=== PATIENT | male | born 1990 | race Caucasian/White ===

== ENCOUNTER 2021-03-10 14:50 | Emergency (ER) | payer OTHER ==
[~2021-03-10] VITALS: Ht 177.8 cm; Wt 104.4 kg
[2021-03-10 15:35] LABS: BASO # 0.01 (0.02-0.10); EOS # 0.01 (0.04-0.40); EOS % 0.1 % (0.0-4.0); HEMATOCRIT 51.9 % (42.0-52.0); HEMOGLOBIN 18.3 g/dL (13.5-18.0); LYMPH# 1.77 (1.50-4.00); MEAN CELL VOLUME 86 fl (78-100); MEAN CORPUSCULAR HEMOGLOBIN 30 pg (27-31); MEAN CORPUSCULAR HGB CONC 35 g/dL (33-37); MEAN PLATELET VOLUME 9.5 fl (7.4-10.4); MONO # 0.73 (0.20-0.80); NEU # 5.71 (1.40-6.50); PLATELET COUNT 210 K/mm3 (130-400); RED BLOOD COUNT 6.07 M/mm3 (4.20-5.60); RED CELL DISTRIBUTION WIDTH 12.4 % (11.5-14.5); WHITE BLOOD COUNT 8.3 K/mm3 (4.8-10.8)
[2021-03-10 15:44] LABS: ALBUMIN 4.6 g/dL (3.5-5.0); POTASSIUM 3.5 mmol/L (3.5-5.1)
[2021-03-10 15:46] LABS: TOTAL PROTEIN 8.4 g/dL (6.4-8.3)
[2021-03-10 15:48] LABS: TOTAL BILIRUBIN 1.5 mg/dL (0.2-1.2)
[2021-03-10] MEDS ORDERED: ONDANSETRON ODT8 MG PO (18:23)
[2021-03-10 18:30] VITALS: BP 147/82
== END 2021-03-10 18:30 | disposition home or self-care (01) ==
LOC: ED 14:50
PROVIDERS: Nurse Practitioner Family
DX: U07.1 COVID-19 (principal); E86.0 Dehydration; E66.9 Obesity, unspecified; F17.220 Nicotine dependence, chewing tobacco, uncomplicated; Z68.33 Body mass index [BMI] 33.0-33.9, adult
CPT/HCPCS: J2405; J7030; Q0244

== ENCOUNTER → 2022-09-21 | Outpatient (CLI) | payer OTHER ==
[~2022-09-21] MED LIST: ONDANSETRON ODT8 MG PO
[2022-09-21 12:01] LABS: BASO # 0.04 K/mm3 (0.02-0.10); EOS # 0.03 K/mm3 (0.04-0.40); EOS % 0.4 % (0.0-4.0); HEMATOCRIT 47.3 % (42.0-52.0); HEMOGLOBIN 16.6 g/dL (13.5-18.0); LYMPH# 2.02 K/mm3 (1.50-4.00); MEAN CELL VOLUME 88 fl (78-100); MEAN CORPUSCULAR HEMOGLOBIN 31 pg (27-31); MEAN CORPUSCULAR HGB CONC 35 g/dL (33-37); MONO # 0.71 K/mm3 (0.20-0.80); NEU # 5.51 K/mm3 (1.40-6.50); PLATELET COUNT 291 K/mm3 (130-400); RED BLOOD COUNT 5.38 M/mm3 (4.20-5.60); RED CELL DISTRIBUTION WIDTH 11.7 % (11.5-14.5); WHITE BLOOD COUNT 8.4 K/mm3 (4.8-10.8)
[2022-09-21 12:10] LABS: POTASSIUM 4.6 mmol/L (3.5-5.1)
[2022-09-21 12:11] LABS: CALCIUM 10.1 mg/dL (8.3-10.5)
== END ==
LOC: LAB 11:46 → RAD 11:46
PROVIDERS: Family Medicine
DX: K76.0 Fatty (change of) liver, not elsewhere classified (principal); K42.9 Umbilical hernia without obstruction or gangrene; K31.9 Disease of stomach and duodenum, unspecified
CPT/HCPCS: Q9967